=== PATIENT | female | born 1970 | race Caucasian/White ===

== ENCOUNTER 2016-11-30 13:37 | Emergency (ER) | payer BC ==
[~2016-11-30] VITALS: Ht 170.2 cm; Wt 93.5 kg
[~2016-11-30 13:37] MED LIST: [UNRECOGNIZED DRUG - REMARK]
[2016-11-30 13:47] VITALS: Ht 170.2 cm; Wt 93.5 kg
[2016-11-30 14:59] LABS: URINE BLOOD (Dip) POC Trace-intact (NEGATIVE)
--- NOTE | 2016-11-30 15:58 | RADRPT ---
PROCEDURE: CT brain without contrast CLINICAL INDICATION: Dizziness, headache TECHNIQUE: CT of the brain without contrast was performed on a multidetector CT scanner, with multi planar reformats. One or more of the following dose reduction techniques were used: Automated expos ure control, adjustment in mA and / or kV according to patient size, use of iterative reconstructive technique. CTDIvol = 44 mGy; DLP = 720 mGy-cm. COMPARISON: None available FINDINGS: No acute intracranial hemorrhage is identified. No extra-axial fluid collection is seen. There is no mass effect. No midline shift is identified. Ventricles and sulci are within normal limits for size and configuration. The density of the brain is within normal limits. Moses-white differentiation is preserved. Calvarium and skull base are intact. Mastoid air cells and imaged paranasal sinuses grossly clear. IMPRESSION: Unremarkable noncontrast CT of the brain. RPTAT: VV .Angel Vazquez MD, MD Date Time Electronically viewed and signed by .Angel Vazquez MD, on 11/30/2016 15:58 .O/
--- NOTE | 2016-11-30 16:05 | RADRPT ---
PROCEDURE: CT Sinuses. CLINICAL INDICATION: Dizziness and headache. TECHNIQUE: A CT of the sinuses was performed on a multidetector CT scanner utilizing direct olivarez l images. Sagittal and axial reformatted images were made. The CTDIvol is 23.31 and the DLP is 319 .22 mGycm. One or more of the following dose reduction techniques were utilized: Automated exposu re control, adjustment of the mA and/or kV according to patient size, use of iterative reconstructio n technique. COMPARISON: None. FINDINGS: Skull base: The cribriform plate, fovea ethmoidalis, lamina papyracea, anterior cranial fossa and pi tuitary sella are intact and normal in appearance. The anterior ethmoid artery sulcus and normal pos ition and symmetric bilaterally. Maxillary sinuses: The maxillary sinuses are clear without significant mucosal thickening or air-fluid levels. 11 mm ri ght maxillary sinus mucous retention cyst or polyp. The ostiomeatal units are patent bilaterally. Ethmoid air cells: The ethmoid air cells are clear without significant mucosal thickening or air-fluid levels. Prominen t agger nasi cells Sphenoid sinuses: The sphenoethmoidal recesses appear grossly patent on the reformatted images. The sphenoid sinuses are clear. Frontal sinuses: The frontal recesses are both patent. The frontal sinuses are clear. Nasal cavity: There is no significant nasal septal deviation. Nasopharynx: The contours of the nasopharynx are normal. Mastoid air cells: Mastoid air cells are clear bilaterally. IMPRESSION: 1. Grossly unremarkable CT of the sinuses. RPTAT:AAJJ Physician Madan Date Time Electronically viewed and signed by Physician Madan on 11/30/2016 16:05 PHYLLIS/
[2016-11-30] MEDS ORDERED: CETI10CA PO (16:21)
[2016-11-30] MEDS ORDERED: IBUP-1542 PO (16:21)
--- NOTE | 2016-11-30 16:23 | ERD ---
ER Documentation Chief Complaint Date/Time DATE: 11/30/16 TIME: 16:22 Chief Complaint LIGHTHEADED & DIZZY SINCE YESTERDAY, WORSE IF SHE LOOKS DOWN. HPI This 46-year-old female complains of a one-day history of some dizziness and mild frontal headache. It is worse when she bends over. Denies any nasal congestion, cough or history of trauma. She denies any fevers, chest pain, shortness breath, additional symptoms. ROS All systems reviewed and are negative except as per history of present illness. Medications Home Meds Active Scripts Cetirizine Hcl* (Zyrtec*) 10 Mg Capsule, 10 MG PO DAILY, #10 TAB.CHEW Prov:THALIA DILL MD 11/30/16 Ibuprofen* (Motrin*) 600 Mg Tab, 600 MG PO Q6, #20 TAB Prov:THALIA DILL MD 11/30/16 Reported Medications [Denies Allergies & Meds] No Conflict Check 07/22/12 Allergies Allergies: Coded Allergies: No Known Allergy (Unverified , 11/30/16) PMhx/Soc History of Surgery: Yes (TONSIL) Anesthesia Reaction: No Hx Neurological Disorder: No Hx Respiratory Disorders: No Hx Cardiac Disorders: Yes (HTN, DIET CONTROLLED) Hx Psychiatric Problems: No Hx Miscellaneous Medical Probl: No Hx Alcohol Use: Yes (OCC) Hx Substance Use: No Hx Tobacco Use: No Smoking Status: Never smoker Physical Exam Vitals Vital Signs Date Time Temp Pulse Resp B/P Pulse Ox O2 Delivery O2 Flow Rate FiO2 11/30/16 13:47 97.6 77 20 153/84 98 Physical Exam Const: [], [id number]-[id number] per Head: Atraumatic Eyes: Normal Conjunctiva ENT: Normal External Ears, Nose and Mouth.TMs and oropharynx normal. Neck: Full range of motion..~ No meningismus. Resp: Clear to auscultation bilaterally Cardio: Regular rate and rhythm, no murmurs Abd: Soft, non tender, non distended. Normal bowel sounds Skin: No petechiae or rashes Back: No midline or flank tenderness Ext: No cyanosis, or edema Neur: Awake and alert. No cerebellar signs. No appreciable focal neurologic deficits. Psych: Normal Mood and Affect Results 24 hrs Laboratory Tests Test 11/30/16 15:02 11/30/16 15:05 Bedside Glucose 96mg/dL Bedside Urine pH (LAB) 5.5 Bedside Urine Protein (LAB) Negative Bedside Urine Glucose (UA) Negative Bedside Urine Ketones (LAB) Negative Bedside Urine Blood Trace-intact Bedside Urine Nitrite (LAB) Negative Bedside Urine Leukocyte Esterase (L Negative Procedures/MDM Accu-Chek was normal. EKG: Rate/Rhythm: [Normal Sinus Rhythm] rate equals 69 QRS, ST, T-waves: [No changes consistent w/ acute ischemia] Impression: [No evidence of ischemia or arrhythmia] CT brain and sinuses are as normal by the radiologist. Patient was stable and amatory throughout the ED course with no new complaints.Patient presents with positional headache and dizziness of uncertain etiology. There is no signs of ischemia, lesions, emergent causes of presenting complaints. She will discharged home a short course of Zyrtec ibuprofen for sinus headache, instructions for fluids and primary care follow- up and return precautions. The patient was stable with no new complaints during the ER course. Clinically, there is no current evidence to suggest meningitis, sepsis, acute abdomen, pneumonia, acute coronary syndrome, pulmonary embolism, or any other emergent condition appearing to require further evaluation or hospitalization. The patient should certainly return for any new or worsening symptoms per the aftercare instructions. They should otherwise follow-up with her primary care doctor for reevaluation this week. Departure Diagnosis: Primary Impression: Dizziness Condition: Stable Patient Instructions: Dizziness, Unk Cause Referrals: CODY HERNANDEZ (PCP) Additional Instructions: All examinations normal today. Recheck for new or worsening symptoms with primary care doctor. THALIA DILL MD Nov 30, 2016 16:23
== END 2016-11-30 16:49 | disposition home or self-care (01) ==
LOC: FTE 13:37
DX: R42 Dizziness and giddiness (principal); I10 Essential (primary) hypertension
CPT/HCPCS: 70450; 70486; 81003; 82962; 93005

== ENCOUNTER 2017-08-14 13:33 | Emergency (ER) | END 2017-08-14 15:03 | disposition home or self-care (01) ==